=== PATIENT | female | born 1980 | race Caucasian/White ===

== ENCOUNTER 2016-12-08 02:39 | Emergency (ER) | payer SELFPAY ==
[~2016-12-08] VITALS: Ht 160 cm; Wt 72.1 kg
[2016-12-08 02:52] VITALS: BP 167/97; PULSE 87; RESP 16; TEMP 97.8; O2SAT 98
[2016-12-08] MEDS ORDERED: AMOX500C PO (03:01)
[2016-12-08] MEDS ORDERED: MEDR4PAK PO (03:01)
[2016-12-08] MEDS ORDERED: LIDOCAINE 2% JELLY 30 ML TUBE TOPICAL ONE (03:15)
--- NOTE | 2016-12-08 03:28 | PD ---
HPI Chief Complaint: GI Complaint Time Seen by Provider: 02:57 Travel History International Travel<30 days: No Contact w/Intl Traveler<30days: No Traveled to known affect area: No History of Present Illness HPI The patient is a 36-year-old female that had thrombosed hemorrhoids and went to [facility] Thursday evening in [facility]. They cut the clot out by an incision over the hemorrhoid. She states they were afraid to give her something for pain because of the constipation. She comes in tonight because of intolerable pain. She did not go to the hospital in [facility]. She lives in [place]. Initially she had bleeding but there is no bleeding at this time. She states she has a pain of 10 over 10 with sharp burning pain. She states she took her mother's Percocet and got good relief for a while yesterday. PFSH Past Medical History Cardiovascular Problems: Yes (RHEUMATIC FEVER, PROLAPSED VALVE) Gastrointestinal Disorders: Yes (HEMORRHOIDS) Tetanus Vaccination: < 5 Years Influenza Vaccination: No ?: Not LMP: 11/23/16 : 4 Para: 3 : 1 Tubal Ligation: Yes Past Surgical History Tonsillectomy: Yes Social History Alcohol Use: Yes (DAILY) Tobacco Use: Yes (1 PPD) Substance Use: No Allergies-Medications (Allergen,Severity, Reaction): Coded Allergies: No Known Allergies (Verified Allergy, Unknown, 12/08/16) Reported Meds & Prescriptions Reported Meds & Active Scripts Active Ativan (Lorazepam) 0.5 Mg Tab 0.5 Mg PO Q6H PRN Percocet (Oxycodone-Acetaminophen) 5-325 mg Tab 1 Tab PO Q6H PRN Proctofoam Topical (Rectal Foam) (Pramoxine Topical (Rectal Foam)) 1% Foam 1 Applic TOPICAL QID PRN Reported Medrol Dosepak (Methylprednisolone) 4 Mg Dspk 4 Mg PO DIRECTED Per Pharmacist direction Amoxicillin 500 Mg Cap 500 Mg PO TID Review of Systems Except as stated in HPI: all other systems reviewed are Neg Physical Exam Narrative GENERAL: Well-nourished, extremely anxious, well-developed patient in moderate to severe distress with her hemorrhoidal pain. The initial blood pressure was 167/97 but the rest the vital signs are normal. SKIN: Focused skin assessment warm/dry. HEAD: Normocephalic. EYES: No scleral icterus. No injection or drainage. NECK: Supple, trachea midline. No JVD or lymphadenopathy. CARDIOVASCULAR: Regular rate and rhythm without murmurs, gallops, or rubs. RESPIRATORY: Breath sounds equal bilaterally. No accessory muscle use. GASTROINTESTINAL: Abdomen soft, non-tender, nondistended. MUSCULOSKELETAL: No cyanosis, or edema. BACK: Nontender without obvious deformity. No CVA tenderness. RECTAL EXAM: Stool is brown. The hemorrhoid is about 2 x 1.5 centimeters in diameter. There is a 1 cm incision over the center of the hemorrhoid. The hemorrhoid is exquisitely tender to the touch and is bluish red. Data Data Last Documented VS Vital Signs Date Time Temp Pulse Resp B/P (MAP) Pulse Ox O2 Delivery O2 Flow Rate FiO2 12/08/16 02:52 97.8 87 16 167/97 (120) 98 Orders Orders Lidocaine 2% Jelly (Xylocaine 2% Jelly) (12/08/16 03:15) Oxycodone-Acetamin 7.5-325 Mg (Percocet (12/08/16 03:45) MDM Medical Decision Making Medical Screen Exam Complete: Yes Emergency Medical Condition: Yes Medical Record Reviewed: Yes Differential Diagnosis Hemorrhoidectomy pain, rectal cellulitis, rectal abscess Narrative Course The patient has hemorrhoidectomy pain. She would benefit by sitting in a tub of cool water. She may even wish to put ice on the area. She cannot do it she states because it hurt too much initially. Now she thinks she can do it with the help of the lidocaine gel. The patient will be given a few Percocets and told her increase liquid and fruit juice to avoid constipation. She will also get some Ativan 0.5 mg. She'll also get procto foam. If she has continued problems she needs to follow-up with a colorectal surgeon. Procedures Procedure Narrative The patient would not moderately touched the hemorrhoids initially. I sprayed the hemorrhoid with a small amount of Hurricaine spray and then applied 2% lidocaine gel to the area. After about 10 minutes the patient got some relief and calmed down. Diagnosis Primary Impression: History of hemorrhoidectomy Additional Impression: Pain, rectal Additional Instructions: As we discussed follow-up with a colorectal surgeon if you have continued problems. Use the lidocaine approximately one small dab every 4 hours directly on the hemorrhoid. Med/Other Pt SpecificInfo: Prescription(s) given Scripts Lorazepam (Ativan) 0.5 Mg Tab 0.5 MG PO Q6H Y for ANXIETY AND/OR AGITATION, #14 TAB 0 Refills Prov: Lester Gallo MD 12/08/16 Oxycodone-Acetaminophen (Percocet) 5-325 mg Tab 1 TAB PO Q6H Y for PAIN, #14 TAB 0 Refills Prov: Lester Gallo MD 12/08/16 Pramoxine Topical (Rectal Foam) (Proctofoam Topical (Rectal Foam)) 1% Foam 1 APPLIC TOPICAL QID Y for ITCHING, #15 GM 0 Refills Prov: Lester Gallo MD 12/08/16 Disposition: 01 DISCHARGE HOME Condition: Stable Lester Gallo MD Dec 08, 2016 03:28
[2016-12-08] MEDS ORDERED: PRAM1AER8 TOPICAL (03:29)
[2016-12-08] MEDS ORDERED: LORA-392 PO (03:30)
[2016-12-08] MEDS ORDERED: PERC5TAB12 PO (03:30)
[2016-12-08 03:36] VITALS: BP 111/63
[2016-12-08] MEDS ORDERED: oxyCODONE/ACETAMINOPHEN 7.5 MG/325 MG TAB PO ONE (03:45)
== END 2016-12-08 03:47 | disposition home or self-care (01) ==
LOC: PHED 02:39
DX: K62.89 Other specified diseases of anus and rectum (principal); G89.18 Other acute postprocedural pain
CPT/HCPCS: 99284

== ENCOUNTER 2016-12-11 12:20 | Emergency (ER) | payer SELFPAY ==
[~2016-12-11] VITALS: Ht 160 cm; Wt 68.3 kg
[~2016-12-11 12:20] MED LIST: AMOX500C PO; LORA-392 PO; MEDR4PAK PO; PERC5TAB12 PO; PRAM1AER8 TOPICAL
[2016-12-11 12:26] VITALS: BP 112/73; PULSE 116; RESP 20; TEMP 98.2; O2SAT 96
[2016-12-11] MEDS ORDERED: TRAM50TA PO (12:59)
--- NOTE | 2016-12-11 13:02 | PD ---
HPI Chief Complaint: Pain: Acute or Chronic Time Seen by Provider: 12:35 Travel History International Travel<30 days: No Contact w/Intl Traveler<30days: No Traveled to known affect area: No History of Present Illness HPI The patient was seen and examined in the presence of the nurse. This patient complains of pain in her hemorrhoid area. She had a thrombosed external hemorrhoid excised a few days ago. She still having pain. She was worried about getting infected. No fever. Some severity is mild. PFSH Past Medical History Cardiovascular Problems: Yes (PROLAPSED) Gastrointestinal Disorders: Yes (HEMORRHOIDS) ?: Not LMP: 11-24-16 : 4 Para: 3 : 1 Tubal Ligation: Yes Past Surgical History Tonsillectomy: Yes Social History Alcohol Use: Yes (DAILY) Tobacco Use: Yes (1 PPD) Substance Use: No Allergies-Medications (Allergen,Severity, Reaction): Coded Allergies: No Known Allergies (Verified Allergy, Unknown, 12/11/16) Reported Meds & Prescriptions Reported Meds & Active Scripts Active Ativan (Lorazepam) 0.5 Mg Tab 0.5 Mg PO Q6H PRN Percocet (Oxycodone-Acetaminophen) 5-325 mg Tab 1 Tab PO Q6H PRN Proctofoam Topical (Rectal Foam) (Pramoxine Topical (Rectal Foam)) 1% Foam 1 Applic TOPICAL QID PRN Reported Medrol Dosepak (Methylprednisolone) 4 Mg Dspk 4 Mg PO DIRECTED Per Pharmacist direction Amoxicillin 500 Mg Cap 500 Mg PO TID Review of Systems General / Constitutional: No: Fever HENT: No: Headaches Cardiovascular: No: Chest Pain or Discomfort Respiratory: No: Cough Physical Exam Narrative GASTROINTESTINAL: Abdomen soft, non-tender, nondistended. Positive bowel sounds. No hepato-splenomegaly, or palpable masses. No guarding. Psych: Normal mood and affect. Normal insight and judgment. SKIN: Focused skin assessment reveals no rash or ulcers. Skin is warm and dry. Palpation shows no induration or nodules. Rectal: Large thrombosed external hemorrhoid is present. There is a slit in it but no active bleeding. No sign of infection. Data Data Last Documented VS Vital Signs Date Time Temp Pulse Resp B/P (MAP) Pulse Ox O2 Delivery O2 Flow Rate FiO2 12/11/16 12:26 98.2 116 20 112/73 (86) 96 MDM Medical Decision Making Medical Screen Exam Complete: Yes Emergency Medical Condition: Yes Medical Record Reviewed: Yes Differential Diagnosis Thrombosed external hemorrhoid, infected hemorrhoid, cellulitis Narrative Course I have reviewed the patient's electronic medical record. No sign of infection. He has a thrombosed external hemorrhoid. Recommend colorectal follow-up. Recommend stool softener and I wrote her some tramadol Diagnosis Primary Impression: Thrombosed external hemorrhoid Additional Instructions: The patient was advised to follow up with colorectal physician and return if they worsen. The patient was warned about potential sedation for the medications they will receive on prescription. Use stool softener Med/Other Pt SpecificInfo: Prescription(s) given Scripts Tramadol (Tramadol) 50 Mg Tab 50 MG PO Q6H Y for PAIN, #20 TAB 0 Refills Prov: Omar Mercado MD 12/11/16 Disposition: 01 DISCHARGE HOME Condition: Stable Omar Mercado MD Dec 11, 2016 13:02
== END 2016-12-11 13:21 | disposition home or self-care (01) ==
LOC: PHED 12:20
DX: K64.5 Perianal venous thrombosis (principal); F17.200 Nicotine dependence, unspecified, uncomplicated
CPT/HCPCS: 99283